=== PATIENT | female | born 2000 | race American Indian/Alaskan Native ===

== ENCOUNTER 2021-01-04 11:23 | Emergency (ER) | payer SELFPAY ==
[2021-01-04] MEDS ORDERED: KETOROLAC 30 MG/1 ML INJ IV ONE (13:08)
[2021-01-04] MEDS ORDERED: ONDANSETRON 4 MG/2 ML INJ IV ONE (13:08)
[2021-01-04] MEDS ORDERED: MORPHINE 4 MG/1 ML INJ IV ONE (13:08)
[2021-01-04] MEDS ORDERED: dexAMETHasone 20 MG/5 ML VIAL IV ONE (13:09)
--- NOTE | 2021-01-04 13:13 | Emergency Department Report ---
ED General Adult HPI - General Chief complaint: Sore Throat Stated complaint: SORE THROAT, BODY WEAKNESS Time Seen by Provider: 01/04/21 12:50 Source: patient Mode of arrival: Ambulatory Limitations: No Limitations - History of Present Illness Initial comments: 20-year-old -[place] female patient presents with complaints of sore throat x7 days. Patient states difficulty swallowing and difficulty with speech. She rates her pain as 8/10 in severity. She denies any past medical history. She denies any fever/chills/sweats, cough, shortness of breath, chest pain, or rash -: Gradual Severity scale (0 -10): 9 Quality: constant Worsens with: other (swallowing) - Related Data Previous Rx's Medication Instructions Recorded Last Taken Type Clindamycin [Clindamycin CAP] 300 mg PO Q6H 14 Days #56 capsule 01/04/21 Unknown Rx Ibuprofen [Motrin 800 MG tab] 800 mg PO Q8HR PRN #20 tablet 01/04/21 Unknown Rx predniSONE [Deltasone] 20 mg PO BID 2 Days #4 tab 01/04/21 Unknown Rx Allergies Allergy/AdvReac Type Severity Reaction Status Date / Time No Known Allergies Allergy Unverified 01/04/21 11:36 ED Review of Systems ROS: Stated complaint: SORE THROAT, BODY WEAKNESS Other details as noted in HPI Constitutional: denies: chills, diaphoresis, fever, malaise, weakness ENT: throat pain Respiratory: denies: cough, shortness of breath Cardiovascular: denies: chest pain Gastrointestinal: denies: nausea, vomiting Skin: denies: change in color Hematological/Lymphatic: denies: swollen glands ED Past Medical Hx - Past Medical History Previous Medical History?: No - Surgical History Past Surgical History?: No - Medications Home Medications: Home Medications Medication Instructions Recorded Confirmed Last Taken Type Clindamycin [Clindamycin CAP] 300 mg PO Q6H 14 Days #56 capsule 01/04/21 Unknown Rx Ibuprofen [Motrin 800 MG tab] 800 mg PO Q8HR PRN #20 tablet 01/04/21 Unknown Rx predniSONE [Deltasone] 20 mg PO BID 2 Days #4 tab 01/04/21 Unknown Rx ED Physical Exam - General Limitations: No Limitations General appearance: alert, in no apparent distress - Head Head exam: Present: atraumatic - Eye Eye exam: Present: normal appearance - Expanded ENT Exam Expanded Mouth exam: Present: trismus (Minimal), muffled voice Throat exam: Positive: tonsillar erythema, tonsillomegaly - Neck Neck exam: Present: normal inspection - Respiratory Respiratory exam: Present: normal lung sounds bilaterally. Absent: respiratory distress - Cardiovascular Cardiovascular Exam: Present: normal rhythm, tachycardia - Neurological Exam Neurological exam: Present: alert, oriented X3 - Psychiatric Psychiatric exam: Present: normal affect, normal mood - Skin Skin exam: Present: warm, dry, intact, normal color. Absent: rash ED Course Vital Signs 01/04/21 01/04/21 11:41 13:44 Temperature 99.2 F Pulse Rate 118 H Respiratory 16 Rate Blood Pressure 141/85 O2 Sat by Pulse 99 95 Oximetry ED Medical Decision Making - Lab Data Result diagrams: 01/04/21 13:59 01/04/21 13:59 Lab Results 01/04/21 01/04/21 01/04/21 Range/Units 13:59 13:59 13:59 WBC 18.6 H (4.5-11.0) K/mm3 RBC 4.60 (3.65-5.03) M/mm3 Hgb 14.1 (10.1-14.3) gm/dl Hct 41.9 (30.3-42.9) % MCV 91 (79-97) fl MCH 31 (28-32) pg MCHC 34 (30-34) % RDW 13.1 L (13.2-15.2) % Plt Count 337 (140-440) K/mm3 Lymph % (Auto) 7.6 L (13.4-35.0) % [place] % (Auto) 9.6 H (0.0-7.3) % Eos % (Auto) 0.1 (0.0-4.3) % Baso % (Auto) 0.4 (0.0-1.8) % Lymph # (Auto) 1.4 (1.2-5.4) K/mm3 [place] # (Auto) 1.8 H (0.0-0.8) K/mm3 Eos # (Auto) 0.0 (0.0-0.4) K/mm3 Baso # (Auto) 0.1 (0.0-0.1) K/mm3 Seg Neutrophils % 82.3 H (40.0-70.0) % Seg Neutrophils # 15.3 H (1.8-7.7) K/mm3 Sodium 142 (137-145) mmol/L Potassium 4.0 (3.6-5.0) mmol/L Chloride 97.9 L (98-107) mmol/L Carbon Dioxide 23 (22-30) mmol/L Anion Gap 25 mmol/L BUN 11 (7-17) mg/dL Creatinine 0.7 (0.6-1.2) mg/dL Estimated GFR > 60 ml/min BUN/Creatinine Ratio 16 % Glucose 70 (65-100) mg/dL Calcium 9.6 (8.4-10.2) mg/dL HCG, Qual Negative (Negative) - Radiology Data Radiology results: report reviewed CT NECK WITH INTRAVENOUS CONTRAST AND MULTIPLANAR RECONSTRUCTION CLINICAL HISTORY: Throat pain. "Hot potato voice". TECHNIQUE: 2.5 mm thick contiguous axial scans were obtained from the skull base down to the aortic arch during intravenous contrast administration. In addition to evaluation of axial source images sagittal and coronal multiplanar reconstructions were produced and reviewed for this report. Contrast dose report: Omnipaque 300: 100 ML administered intravenously All CT imaging studies performed at this facility utilize dose modulation, iterative reconstruction or weight based dosing, if appropriate, to obtain the lowest achievable rad iation dose. FINDINGS: Limitations: Posterior fat in the fat planes of the neck is a limiting factor on this study. AIRWAY: Marked enlargement of the palatine tonsils is noted bilaterally. Low- attenuation material is present within the enlarged tonsils. This may reflect presence of phlegmon. Well-formed tonsillar abscesses are not observed at this time. There is increased soft tissue fullness in the posterior nasopharynx compatible with enlargement of adenoidal tissue. Lingual tonsils are enlarged. The soft palate is compressed between the enlarged tonsils. These changes likely reduce the caliber of the nasopharyngeal airway. Hypopharynx, larynx and visualized portions of the subglottic airway all have an unremarkable appearance. The oropharyngeal airway is mildly narrowed. LYMPH NODES: There is no indication of cervical lymphadenopathy. ORAL CAVITY/FLOOR OF MOUTH: No abnormalities are seen in evaluation of the oral cavity and tongue. The floor the mouth has a normal appearance. MAJOR SALIVARY GLANDS: The parotid and submandibular salivary glands have a normal appearance. NASAL CAVITY AND PARANASAL SINUSES: Evaluation of the nasal cavity reveals no abnormality. The paranasal sinuses are free from inflammatory mucosal disease. ORBITS:No abnormalities of the visualized portions of the orbits are identified. Globes, optic nerves, extraocular muscles and lacrimal glands have an unremarkable appearance. THYROID GLAND: The thyroid gland is normal in size and homogeneous in attenuation. No focal thyroid lesions are identified. TEMPORAL BONES:Mastoid air cells are normally pneumatized. CERVICAL SPINE: Evaluation of the cervical spine reveals no significant abnormality. Normal alignment is maintained. No significant degenerative changes are identified. Note is made of dextroscoliosis at the cervicothoracic junction. LUNG APICES: Evaluation of the lung apices reveals no abnormality. There is no indication of lung nodule or infiltrate. The visualized portions of the superior mediastinum have an unremarkable appearance. CONTRAST ADMINISTRATION: Enhancement of normal vascular structures is demonstr ated. No areas of abnormal contrast enhancement are identified. IMPRESSION: 1. Marked enlargement of the palatine tonsils with enlargement of adenoidal tissue and lingual tonsillar tissue as well. 2. Ill-defined low-attenuation within the palatine tonsils may reflect presence of phlegmon. I do not detect well-developed abscess at this time. 3. There is marked narrowing of the nasopharyngeal airway and mild narrowing of the oropharyngeal airway as described above. - Medical Decision Making 20-year-old -[place] female patient presents with complaints of sore throat x7 days. Patient states difficulty swallowing and difficulty with sp eech. She rates her pain as 8/10 in severity. She denies any past medical history. She denies any fever/chills/sweats, cough, shortness of breath, chest pain, or rash Patient having some difficulty opening her jaw on exam however her potato voice is noted with significant swelling of the tonsillar/peritonsillar tissue. CT of the neck and and shows the followin. Marked enlargement of the palatine tonsils with enlargement of adenoidal tissue and lingual tonsillar tissue as well. 2. Ill-defined low-attenuation within the palatine tonsils may reflect presence of phlegmon. I do not detect well-developed abscess at this time. 3. There is marked narrowing of the nasopharyngeal airway and mild narrowing of the oropharyngeal airway as described above. Patient given Decadron and Toradol and is now able to fully open her jaw. She states her pain is controlled. CBC shows white count of 18, however she remains afebrile and her heart rate is normal with pain control. Patient given IV dose of clindamycin. Discussed patient in findings in detail with Dr. Mcrae who agrees with plan of care. Her vitals are normal, she is well-appearing, she is stable for discharge home. Discussed in detail signs and symptoms that should prompt immediate return to the emergency department with patient who verbalized understanding. Critical care attestation.: If time is entered above; I have spent that time in minutes in the direct care of this critically ill patient, excluding procedure time. ED Disposition Clinical Impression: Infection of tonsil, Tonsillar enlargement, Peritonsillar cellulitis Disposition: TO HOME OR SELFCARE Is pt being admited?: No Condition: Stable Instructions: Tonsillitis, Peritonsillar Cellulitis Additional Instructions: Seek immediate emergency treatment if you experience any of the following or new or worsening symptoms: Difficulty breathing Worsening throat pain, neck pain, or trismus Enlarging mass Fever Neck stiffness Bleeding Prescriptions: Clindamycin [Clindamycin CAP] 300 mg PO Q6H 14 Days #56 capsule predniSONE [Deltasone] 20 mg PO BID 2 Days #4 tab Ibuprofen [Motrin 800 MG tab] 800 mg PO Q8HR PRN #20 tablet PRN Reason: pain Referrals: MARLEE FIGUEROA MD [Staff Physician] - 3-5 Days Forms: Work/School Release Form(ED)
[2021-01-04 14:43] LABS: Basophils # (Auto) 0.1 K/mm3 (0.0-0.1); Basophils % (Auto) 0.4 % (0.0-1.8); Eosinophils % (Auto) 0.1 % (0.0-4.3); Hematocrit 41.9 % (30.3-42.9); Hemoglobin 14.1 gm/dl (10.1-14.3); Lymphocytes # (Auto) 1.4 K/mm3 (1.2-5.4); Lymphocytes % (Auto) 7.6 % (13.4-35.0); Mean Corpuscular HGB Conc 34 % (30-34); Mean Corpuscular Volume 91 fl (79-97); Monocytes # (Auto) 1.8 K/mm3 (0.0-0.8); Monocytes % (Auto) 9.6 % (0.0-7.3); Platelet Count 337 K/mm3 (140-440); Red Cell Distribution Width 13.1 % (13.2-15.2)
[2021-01-04 15:05] LABS: Blood Urea Nitrogen 11 mg/dL (7-17); Calcium 9.6 mg/dL (8.4-10.2); Hemolysis Index 16
[2021-01-04 15:15] LABS: BUN/Creatinine Ratio 16
--- NOTE | 2021-01-04 16:13 | Cat Scan Report ---
CT NECK WITH INTRAVENOUS CONTRAST AND MULTIPLANAR RECONSTRUCTION CLINICAL HISTORY: Throat pain. "Hot potato voice". TECHNIQUE: 2.5 mm thick contiguous axial scans were obtained from the skull base down to the aortic arch during intravenous contrast administration. In addition to evaluation of axial source images sagittal and co merissa multiplanar reconstructions were produced and reviewed for this report. Contrast dose report: Omnipaque 300: 100 ML administered intravenously All CT imaging studies performed at this facility utilize dose modulation, iterative reconstruction o r weight based dosing, if appropriate, to obtain the lowest achievable radiation dose. FINDINGS: Limitations: Posterior fat in the fat planes of the neck is a limiting factor on this study. AIRWAY: Marked enlargement of the palatine tonsils is noted bilaterally. Low-attenuation material is present within the enlarged tonsils. This may reflect presence of phlegmon. Well-formed tonsillar abs cesses are not observed at this time. There is increased soft tissue fullness in the posterior nasoph arynx compatible with enlargement of adenoidal tissue. Lingual tonsils are enlarged. The soft palate is compressed between the enlarged tonsils. These changes likely reduce the caliber of the nasopharyn geal airway. Hypopharynx, larynx and visualized portions of the subglottic airway all have an unremar kable appearance. The oropharyngeal airway is mildly narrowed. LYMPH NODES: There is no indication of cervical lymphadenopathy. ORAL CAVITY/FLOOR OF MOUTH: No abnormalities are seen in evaluation of the oral cavity and tongue. Th e floor the mouth has a normal appearance. MAJOR SALIVARY GLANDS: The parotid and submandibular salivary glands have a normal appearance. NASAL CAVITY AND PARANASAL SINUSES: Evaluation of the nasal cavity reveals no abnormality. The parana torsten sinuses are free from inflammatory mucosal disease. ORBITS:No abnormalities of the visualized portions of the orbits are identified. Globes, optic nerves , extraocular muscles and lacrimal glands have an unremarkable appearance. THYROID GLAND: The thyroid gland is normal in size and homogeneous in attenuation. No focal thyroid l esions are identified. TEMPORAL BONES:Mastoid air cells are normally pneumatized. CERVICAL SPINE: Evaluation of the cervical spine reveals no significant abnormality. Normal alignment is maintained. No significant degenerative changes are identified. Note is made of dextroscoliosis a t the cervicothoracic junction. LUNG APICES: Evaluation of the lung apices reveals no abnormality. There is no indication of lung nod ule or infiltrate. The visualized portions of the superior mediastinum have an unremarkable appearanc e. CONTRAST ADMINISTRATION: Enhancement of normal vascular structures is demonstrated. No areas of abnor mal contrast enhancement are identified. IMPRESSION: 1. Marked enlargement of the palatine tonsils with enlargement of adenoidal tissue and lingual tonsil lar tissue as well. 2. Ill-defined low-attenuation within the palatine tonsils may reflect presence of phlegmon. I do not detect well-developed abscess at this time. 3. There is marked narrowing of the nasopharyngeal airway and mild narrowing of the oropharyngeal air way as described above. Signer Name: Cristofer Zamora MD Signed: 01/04/2021 4:09 PM Workstation Name: [id number]
[2021-01-04 17:32] VITALS: BP 106/67
== END 2021-01-04 18:19 | disposition home or self-care (01) ==
LOC: ED 11:23
DX: J36 Peritonsillar abscess (principal); J03.90 Acute tonsillitis, unspecified
CPT/HCPCS: 36415; 70491; 80048; 84703; 85025; 96365; 96375; 99284; J1100; J1885; J2270; J2405; Q9967